=== PATIENT | female | born 1985 | race Caucasian/White ===

== ENCOUNTER 2019-06-04 00:11 | Emergency (ER) | payer MEDICAID, OTHER ==
[~2019-06-04] VITALS: Ht 160 cm; Wt 59.1 kg
[~2019-06-04 00:11] MED LIST: IBUP-1222 PO; OXYC-302 PO
[2019-06-04 00:15] VITALS: BP 150/100
== END 2019-06-04 00:55 | disposition home or self-care (01) ==
LOC: ED 00:20
DX: S00.81XA Abrasion of other part of head, initial encounter (principal); L30.9 Dermatitis, unspecified; F15.10 Other stimulant abuse, uncomplicated; F17.200 Nicotine dependence, unspecified, uncomplicated; X58.XXXA Exposure to other specified factors, initial encounter; Y93.89 Activity, other specified; Y92.89 Other specified places as the place of occurrence of the external cause; Y99.8 Other external cause status
CPT/HCPCS: 99281

== ENCOUNTER 2019-06-17 20:08 | Emergency (ER) | payer OTHER ==
[~2019-06-17] VITALS: Ht 157.5 cm; Wt 58.0 kg
[2019-06-17] MEDS ORDERED: SODIUM CHLORIDE 0.9% 1,000ML IVBOLUS ONE (21:00)
[2019-06-17] MEDS ORDERED: SODIUM CHLORIDE FLUSH 10ML SYR IVF ONE (21:00)
[2019-06-17 21:22] LABS: BASOPHILS # (AUTO) 0.07 x10^3/uL (0-0.1); BASOPHILS % (AUTO) 1 % (0-1); EOSINOPHILS # (AUTO) 0.56 x10^3/uL (0-0.4); EOSINOPHILS % (AUTO) 5 % (1-7); LYMPHOCYTES # (AUTO) 3.72 x10^3/uL (1-3.4); LYMPHOCYTES % (AUTO) 34 % (22-44); MD NO; MEAN CORPUSCULAR HEMOGLOBIN 28.3 pg (27.0-34.8); MEAN CORPUSCULAR HGB CONC 33.2 g/dL (32.4-35.8); MEAN CORPUSCULAR VOLUME 85.3 fL (80-100); MEAN PLATELET VOLUME 6.9 fL (7.4-10.4); MONOCYTES # (AUTO) 0.76 x10^3/uL (0.2-0.8); MONOCYTES % (AUTO) 7 % (2-9); NEUTROPHILS # (AUTO) 5.81 x10^3/uL (1.8-6.8); NEUTROPHILS % (AUTO) 53 % (42-75); PLATELET COUNT 402 x10^3/uL (130-400); RED BLOOD COUNT 4.69 x10^6/uL (3.82-5.3); RED CELL DISTRIBUTION WIDTH 14.5 % (9.6-15.2)
[2019-06-17 21:27] LABS: MICROSCOPIC AUTO
[2019-06-17 21:31] LABS: ALBUMIN 3.3 g/dL (3.4-5.0); ANION GAP 3 mmol/L (5-15); CALCIUM 8.7 mg/dL (8.5-10.1); CHLORIDE 111 mmol/L (98-107)
[2019-06-17 21:37] LABS: ALANINE AMINOTRANSFERASE 26 U/L (12-78); ALKALINE PHOSPHATASE 81 U/L (45-117); BILIRUBIN,TOTAL 0.5 mg/dL (0.2-1.0); CREATININE 0.71 mg/dL (0.55-1.02); TOTAL PROTEIN 6.9 g/dL (6.4-8.2)
[2019-06-17 21:45] LABS: CULTURE INDICATED? YES
[2019-06-17] MEDS ORDERED: FOSFOMYCIN 3 GM PACKET PO STA (22:34)
[2019-06-17] MEDS ORDERED: FOSFOMYCIN 3 GM PACKET ONE (23:00)
[2019-06-17 23:36] VITALS: BP 126/78
== END 2019-06-17 23:39 | disposition home or self-care (01) ==
LOC: ED 23:30
DX: N30.00 Acute cystitis without hematuria (principal); L03.113 Cellulitis of right upper limb; L03.114 Cellulitis of left upper limb; F11.10 Opioid abuse, uncomplicated; F15.10 Other stimulant abuse, uncomplicated; F17.210 Nicotine dependence, cigarettes, uncomplicated; Z90.49 Acquired absence of other specified parts of digestive tract
CPT/HCPCS: 36415; 74176; 80053; 81001; 84703; 85025; 87086; 99284; J7030

== ENCOUNTER 2019-09-14 22:46 | Emergency (ER) | payer MEDICAID ==
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
== END 2019-09-14 23:02 | disposition home or self-care (01) ==
LOC: ED 22:51
DX: R68.89 Other general symptoms and signs (principal); Z53.21 Procedure and treatment not carried out due to patient leaving prior to being seen by health care provider

== ENCOUNTER 2019-09-20 05:28 | Emergency (ER) | payer MEDICAID ==
[~2019-09-20] VITALS: Ht 157.5 cm; Wt 57.6 kg
[2019-09-20 05:36] VITALS: BP 117/83
[2019-09-20] MEDS ORDERED: LORazepam 1MG TABLET ONE (06:03)
--- NOTE | 2019-09-20 06:19 | NUR ---
pt refusing all interventions and requesting to leave. pt showed to discharge desk
[2019-09-20] MEDS ORDERED: LIDOCAINE-MPF 1%, 5ML INFIL ONE (06:30)
[2019-09-20] MEDS ORDERED: LORazepam 1MG TABLET PO ONE (06:30)
== END 2019-09-20 06:22 | disposition left against medical advice (07) ==
LOC: ED 06:18
DX: L02.413 Cutaneous abscess of right upper limb (principal); F13.129 Sedative, hypnotic or anxiolytic abuse with intoxication, unspecified
CPT/HCPCS: 99281

== ENCOUNTER 2020-01-22 05:54 | Emergency (ER) | payer MEDICAID ==
[~2020-01-22] VITALS: Ht 157.5 cm; Wt 64.4 kg
[2020-01-22] MEDS ORDERED: NEOSPORIN OINT. PKT 1 PACKET ONE (06:18)
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
[2020-01-22] MEDS ORDERED: AZITHROMYCIN 500 MG TABLET PO ONE (06:30)
[2020-01-22] MEDS ORDERED: DIPH,PERTUSS(ACELL),TET VAC/PF 0.5 ML IM-VACC ONE ×2 (06:30→06:32)
[2020-01-22] MEDS ORDERED: CEFTRIAXONE 250 MG IM ONE (06:30)
[2020-01-22] MEDS ORDERED: CEFTRIAXONE 250 MG ONE (06:32)
[2020-01-22] MEDS ORDERED: AZITHROMYCIN 500 MG TABLET ONE (06:32)
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
--- NOTE | 2020-01-22 07:01 | NUR ---
REPORT FROM JUAN MANUEL, [facility].
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
[2020-01-22 08:06] LABS: MICROSCOPIC AUTO
[2020-01-22 08:27] VITALS: BP 118/69
[2020-01-22 08:45] LABS: CLUE CELLS PRESENT (NONE SEEN); WET PREP WBCS FEW (FEW)
[2020-01-22] MEDS ORDERED: metroNIDAZOLE 500 MG TABLET PO ONE (09:00)
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
== END 2020-01-22 09:22 | disposition home or self-care (01) ==
LOC: ED 06:45
DX: N76.0 Acute vaginitis (principal); L03.213 Periorbital cellulitis; L03.313 Cellulitis of chest wall; F15.10 Other stimulant abuse, uncomplicated; B35.6 Tinea cruris; F17.200 Nicotine dependence, unspecified, uncomplicated; Z90.49 Acquired absence of other specified parts of digestive tract
CPT/HCPCS: 81001; 87086; 87210; 87491; 87591; 87808; 90471; 90715; 96372; 99284; J0696